=== PATIENT | male | born 1990 ===

== ENCOUNTER 2025-02-27 21:43 | Emergency (ER) | payer MEDICAID ==
[~2025-02-27] VITALS: Ht 162.6 cm; Wt 85.7 kg
[2025-02-27] MEDS ORDERED: diazepam inj 5 MG/ML inj. IV ONE (21:45)
[2025-02-27] MEDS ORDERED: diazepam inj 5 MG/ML inj. IM ONE (21:45)
[2025-02-27] MEDS: LIDOcaine 2% Viscous 15ml cup TP PRN (21:55)
[2025-02-27] MEDS: diazepam inj 5 MG/ML inj. IV ONE ×2 (22:25→23:01)
--- NOTE | 2025-02-27 23:41 | Physician Documentation ---
History of Present Illness ~ Chief Complaint: Foreign body Stated Complaint: BUG IN EAR Time Seen by MD: 23:41 OK to notify your PCP?: Yes Source: patient, family, RN notes reviewed, other Mode of Arrival: POV, Dropped Off Exam Limitations: language barrier HPI 34 year old male who is Lebanese speaking presents to the emergency department screaming in pain due to right sided ear pain. Patient is Lebanese speaking so HPI is limited. He states that 30 minutes prior to his arrival an insect entered his right ear. Patient was seen screaming in pain on initial presentation but has later calmed down due to medication. Medication Reconciliation Allergies: Coded Allergies: No Known Allergies (Unverified , 02/27/25) Past Medical History Past Medical History: No Pertinent History Past Surgical History: no surgical history Smoking Status: Never smoker Alcohol Use: None Drug Use: none Review of Systems All Other Systems at this time: Reviewed and Negative ROS As stated above in the HPI, otherwise all systems are reviewed and negative. Physical Exam Vital Signs: RN Vital Signs have been reviewed: Yes, Temperature: 98.8, Source: Temporal, Heart Rate: 129, Respiratory Rate: 18, BP: 163/112, Pulse Oximetry: 98, Weight: 85.700 Pulse Oximetry Reflects: adequate oxygenation Physical Exam General: The patient is well developed, well nourished, nontoxic appearing and is in no acute distress. Skin: [place], warm and dry with no rashes. HEENT: An abdomen of an insect appearing to be a kelly noted to right ear canal. Interior and exterior of canal is red and bloody with erythema to the area. Head was normocephalic and atraumatic. Eyes - pupils equal, round, reactive to light and accommodation. Extraocular movements were intact. Conjunctivae were nonicteric. Ears - bilateral tympanic membranes were normal. The mouth and oropharynx were clear with moist mucous membranes. There were no pharyngeal exudates or erythema. Neck: Supple and nontender. There was no jugular venous distention, lymphadenopathy, thyromegaly or masses. Chest: Clear to auscultation bilaterally without wheezes, rales or rhonchi. No accessory muscle use. No dullness to percussion. Heart: Rate regular and rhythmic. S1, S2. No murmurs. Palpation of the chest wall was normal. No rubs or thrills. Abdomen: Soft, nontender and nondistended. Positive bowel sounds. No guarding or rebound. No hepatosplenomegaly or palpable masses. Extremities: No cyanosis, clubbing or edema. The patient moves all extremities. Pulses were equal and symmetric. Neurologic: Cranial nerves II-XII were intact. Sensation was intact to light touch throughout. Motor strength was 5/5 in all four extremities. Deep tendon reflexes were intact in both upper and lower extremities. Psychologic: The patient was oriented to person, place and time. The patient demonstrated appropriate judgement and insight. Procedures Ear Procedure Ear Procedure : Ear Location: Right Procedure: irrigation Foreign Body/Cerumen Removal: foreign body removed Tolerated Procedure Well?: yes, no complications Procedure Note An abdomen of a beetle is stuck in the patients ear canal. The beetle was killed using lidocaine, the ear has been irrigated and attempts have been made to remove the abdomen of the insect with success. Patient was ordered Versed to keep him calm and from screaming. At 0553 a second attempt was made as the patient was sedated and it was successful removed and irrigated with no complications. Additional Procedures Procedure Note Patient was moderately sedated at 0532 this time using 10mg of etomidate and 190mg of ketamine. Respiratory was at bedside during sedation. Sedation was successful and resulted in the physician removing the beetle from the patients ear which was irrigated using saline flushes. Procedure ended at 0555. Patient was continued to be observed for sedation. Took a bit longer than normal. Patient finally was taken off observation for moderate sedation at 7:15 p.m. ending the procedure. Progress Results/Orders Reviewed/noted all lab results: Yes Results/Orders Orders - RUDI SALINAS MD Ciprofloxacin Ophth Drops (Ciloxan 0.3% (02/28/25 06:33) Completed Orders - RUDI SALINAS MD Diazepam Inj (Valium Inj) (02/27/25 21:50) Ketamine 10mg/Ml 20ml Inj (Ketamine 10mg (02/28/25 01:00) Etomidate Inj (Amidate Inj) (02/28/25 01:00) Ciprofloxacin/Hct Otic Susp (Cipro Hc Ot (02/28/25 05:55) Ketamine 10mg/Ml 20ml Inj (Ketamine 10mg (02/28/25 06:40) Ketamine 10mg/Ml 20ml Inj (Ketamine 10mg (02/28/25 07:00) Medications Received in ER Medications (Trade) Dose Ordered Sig/Angelica Route PRN Reason Start Time Stop Time Status Last Admin Dose Admin (ketamine 10mg/ ml 20ml inj) 90 mg ONCE ONCE IV 02/28/25 01:00 02/28/25 01:05 DC 02/28/25 06:38 90 MG (Amidate inj) 5 mg ONCE ONCE IV 02/28/25 01:00 02/28/25 01:05 DC 02/28/25 06:40 5 MG (Ciloxan 0.3% ophth drops) 3 drp ONCE RIGHT EAR 02/28/25 06:33 02/28/25 06:41 3 DRP (ketamine 10mg/ ml 20ml inj) 10 mg ONCE ONCE IV 02/28/25 07:00 02/28/25 07:01 DC 02/28/25 07:13 10 MG Vital Signs 02/27/25 02/28/25 02/28/25 02/28/25 21:45 02:59 03:01 05:29 Temp 98.8 Pulse 129 72 96 Resp 18 16 16 30 B/P (MAP) 163/112 135/87 (103) 175/103 200/121 213/118 Pulse Ox 98 99 100 O2 Delivery Nasal Cannula O2 Flow Rate 0 3.0 Re-Evaluation Re-Evaluation : Re-Evaluation: Resolved, Improved Progress Patient was seen and examined. Patient is given reassurance. Patient came in in severe pain and extremis. Valium injections as well as viscous lidocaine was given in the ear. Patient received additional doses of Valium. After the insect multiple attempts were made at removing the object. Patient did not tolerate any manipulation to the area despite being heavily sedated. Later patient was set up for moderate sedation. Finally it was successfully removed. Patient received ketamine etomidate multiple doses and finally ciprofloxacin with hydrocortisone drops x3 were provided for b.i.d. dosing for five days. Patient tolerated the procedure ultimately without any complication. The ear was finally irrigated as well so trace blood from the external auditory canal was cleaned up. Medical Decision Making Ear Diff. Dx: Considerations: Include: Abrasion, Cerumen impaction, Foreign body, Otitis externa, Barotrauma, Perforation, Referred pain-dental, Referred pain-pharyngitis, Referred pain-TMJ syn., Tympanic Membrane Injury, Other Departure Time of Disposition: 05:58 Disposition: 01 HOME / SELF CARE / HOMELESS Impression: Primary Impression: Foreign body removal from right ear Condition: Stable Discharge Instructions: Foreign Body, Ear Additional Instructions: Follow up with ENT and take medications as prescribed. Referrals: NO PRIMARY CARE PROVIDER (PCP) Education Educated: Patient Educated regarding: diagnosis, treatment, prognosis, need for follow up Critical Care Note Total Time (mins): 30 Critical Care Note The very real possibility of a deterioration of this patient's condition required the highest level of my preparedness for sudden, emergent intervention. I provided critical care services, which included medication orders, frequent reevaluations of the patient's condition and response to treatment, ordering and reviewing test results, and discussing the case with various consultants. Excludes time spent performing separately billable procedures. The critical care time associated with the care of the patient was 30 minutes. Signature Scribe Signature: Scribed for Rudi Salinas MD by Jessica Be . 02/27/25 23:53 Attestation: The note accurately reflects work and decisions made by me.Rudi Salinas MD 02/27/25 23:41 RUDI SALINAS MD Feb 27, 2025 23:41 JESSICA SHORT Feb 27, 2025 23:53
[2025-02-28] MEDS ORDERED: Cipro HC otic suspension 10ML bottle RIGHT EAR SCH (05:55)
[2025-02-28] MEDS: ketamine 10mg/ml 20ml inj vial IV ONE ×2 (06:38→07:13)
[2025-02-28] MEDS: etomidate 2mg/ml inj. IV ONE (06:40)
[2025-02-28] MEDS ORDERED: ketamine 10mg/ml 20ml inj 0 MG in normal saline 100ml IV soln 100 ML IV ONE (06:40)
[2025-02-28] MEDS: ciprofloxacin 0.3% 2.5ml ophthalmic solution RIGHT EAR SCH (06:41)
[2025-02-28 07:17] VITALS: BP 132/86; PULSE 88; RESP 16; TEMP 98.6; O2SAT 99
== END 2025-02-28 07:20 | disposition home or self-care (01) ==
LOC: ER 21:45
DX: T16.1XXA Foreign body in right ear, initial encounter (principal); W44.F4XA Insect entering into or through a natural orifice, initial encounter; Y93.89 Activity, other specified; Y92.89 Other specified places as the place of occurrence of the external cause; Y99.8 Other external cause status
CPT/HCPCS: 96374; 96376; 99152; 99285; J3360; J3490; J7030